=== PATIENT | female | born 1985 | race Caucasian/White ===

== ENCOUNTER 2016-08-14 14:19 | Emergency (ER) | payer SELFPAY ==
[2016-08-14 14:32] VITALS: BP 134/77
--- NOTE | 2016-08-14 15:02 | UC ---
Abdominal Pain Female HPI - HPI Summary HPI Summary: The patient comes in today for: 1. Abdominal pain: Onset: 8 hours ago. Palliative/provocative: Pressing on the abdomen "hurts a little bit." Quality: Throbbing, ache pain. Region/radiation: all of the abdomen--not in any one particular quadrant. Severity: 10/10 though she looks more like 4/10 Time: Constant. Associated symptoms: FEvers: None. Vomiting: None. Nausea: None. Diarrhea: Present, 4-5 times over the last 8 hours. However, she states that she has had diarrhea in the past. Her usual is 1-2 times a day. But, there are times she will have diarrhea (before she got ill this last 8 hours). She states that she will also have stooling up to 24 times a day if she eats "the wrong thing." She denies any blood, mucous or pus in her stools. Prevous disease: She states that she has had colitis before--type is unknown to the patient. * - History of Current Complaint Chief Complaint: UCGeneralIllness Stated Complaint: LOPEZ,STOMACH COMPLAINTS Time Seen by Provider: 08/14/16 14:47 Hx Obtained From: Patient Hx Last Menstrual Period: 08/14/16 ?: No Allergies/Adverse Reactions: Allergies Allergy/AdvReac Type Severity Reaction Status Date / Time Cephalexin [From Keflex] Allergy Hives Verified 08/14/16 14:23 insulation Allergy Hives Uncoded 08/14/16 14:23 spider bites Allergy Swelling Uncoded 08/14/16 14:23 PMH/Surg Hx/FS Hx/Imm Hx Previously Healthy: No Endocrine History Of: Denies: Diabetes, Thyroid Disease, Hyperthyroidism, Hypothyroidism, Dyslipidemia Cardiovascular History Of: Denies: Cardiac Disorders, Hypertension, Pacemaker/ICD, Myocardial Infarction , Congestive Heart Failure, Atrial Fibrillation, Deep Vein Thrombosis, Bleeding Disorders Respiratory History Of: Denies: COPD, Asthma, Bronchitis, Pneumonia, Pulmonary Embolism GI/ History Of: Reports: Gastroesophageal Reflux - Takes Prilosec, Gall Bladder Disease - She had a cholecystectomy "a couple years ago.", Kidney Stones - When she had her gallbladder check, the renal stones were present. Denies: Ulcer, Gastrointestinal Bleed, Diverticulitis, Renal Disease, Urosepsis Neurological History Of: Denies: TIA, CVA, Dementia, Seizures, Migraine Psychological History Of: Denies: Anxiety, Depression, Bipolar Disorder, Schizophrenia, Post Traumatic Stress Disorder Cancer History Of: Denies: Lung Cancer, Colorectal Cancer, Breast Cancer, Prostate Cancer, Cervical Cancer Other History Of: Negative For: HIV, Hepatitis B, Hepatitis C, Anticoagulant Therapy - Surgical History Surgical History: Yes Surgery Procedure, Year, and Place: cholecystectomy August 2012; tooth extraction July 2012 - Family History Known Family History: Positive: Hypertension, Diabetes Negative: Cardiac Disease - Social History Occupation: Unemployed Lives: With Family Alcohol Use: None Substance Use Type: None Smoking Status (MU): Light Every Day Tobacco Smoker Type: Cigarettes Amount Used/How Often: <1/2 PPD Length of Time of Smoking/Using Tobacco: 6+ YEARS Have You Smoked in the Last Year: Yes Household Exposure Type: Cigarettes - Immunization History Most Recent Tetanus Shot: UNSURE Review of Systems Constitutional: Negative Skin: Negative Eyes: Negative ENT: Ear Ache - She states that she has bilateral otalgia. Respiratory: Cough - "I have a little bit of a cough" but she has not coughed once during the exam. Cardiovascular: Negative Gastrointestinal: Abdominal Pain Genitourinary: Negative Neurological: Headache All Other Systems Reviewed And Are Negative: Yes Physical Exam Triage Information Reviewed: Yes Appearance: Well-Appearing, No Pain Distress, Well-Nourished, Other: - She states that she has a 10/10 pain, but she is lounging across the exam room chair in no distress. She has no psychomotor slowing or guarding or her movement. She is animated and talkative. There is no groaning, or holding of the abdomen. Vital Signs: Initial Vital Signs Temp 97.9 F 08/14/16 14:25 Pulse 99 08/14/16 14:25 Resp 18 08/14/16 14:25 BP 134/77 08/14/16 14:25 Pulse Ox 100 08/14/16 14:25 Vital Signs Reviewed: Yes Eyes: Positive: Conjunctiva Clear. Negative: Discharge ENT: Positive: Hearing grossly normal. Negative: Pharyngeal erythema, Nasal congestion, Nasal drainage, TM bulging, TM dull, TM red, Tonsillar swelling, Tonsillar exudate Dental: Negative: Gross Decay/Caries @, Dental Fracture @ Neck: Positive: Supple, Nontender, No Lymphadenopathy. Negative: Nuchal Rigidity Respiratory: Positive: Chest non-tender, Lungs clear, No respiratory distress, No accessory muscle use. Negative: Crackles, Wheezing Cardiovascular: Positive: RRR, No Murmur Abdomen Description: Positive: No Organomegaly, Soft. Negative: Nontender - She has minimal tenderness to deep palpation in the epigastric area. No masses. No rebound, no percussion tenderness., Distended, Guarding, McBurney's Point Tenderness, Peritoneal Signs Bowel Sounds: Positive: Present Musculoskeletal: Positive: Strength Intact, ROM Intact, No Edema Neurological: Positive: Alert, Muscle Tone Normal Psychological: Positive: Age Appropriate Behavior, Consolable Skin: Negative: rashes, breakdown Diagnostics - Laboratory Diagnostic Studies Completed/Ordered: Urine screen: Specific gravity: 1.035. WBC: (-). Nitrite; (-). Blood: +++. Protein: 100 +. Glucose: None. Bilirubin: 2+. She is on her period. Abd Pain Female Course/Dx - Course Course Of Treatment: Patient was told that I suspected that she has a viral gastroenteritis, despite her complaints of pain being a "10/10." She was offered anti-spasmotic medication which she wanted. She was honestly told that from what she told me and her exam, I would not go to the ER, but she wanted more testing done than what we can offer her. - Differential Dx/Diagnosis Differential Diagnosis: Other - gastroenteritis Provider Diagnoses: Abdominal pain (suspect gastroenteritis) - Physician Notification/Consults Discussed Patient Care With: Dr. Benedict Time Discussed With Above Provider: 15:26 Discharge - Discharge Plan Condition: Stable Disposition: HOME Referrals: Akbar Diaz [Primary Care Provider] - As Soon As Possible (Please see your primary care provider as soon as you get out of the hospital.) Additional Instructions: The patient will be going to the ER at [facility] [place].
== END 2016-08-14 15:37 | disposition left against medical advice (07) ==
LOC: UCEAST 14:19
DX: R10.13 Epigastric pain (principal); Z88.1 Allergy status to other antibiotic agents; Z90.49 Acquired absence of other specified parts of digestive tract; F17.210 Nicotine dependence, cigarettes, uncomplicated
CPT/HCPCS: 81002; 99212; G0463

== ENCOUNTER 2016-08-14 16:24 | Emergency (ER) | payer SELFPAY ==
[2016-08-14 16:32] VITALS: BP 134/80
[2016-08-14] MEDS ORDERED: Ketorolac INJ* 30 MG/ML 1 ML VIAL IV PUSH ONE (17:09)
[2016-08-14] MEDS ORDERED: NS 0.9% 1000 ML* 1,000 ML IV ONE (17:09)
[2016-08-14 17:17] LABS: Hematocrit 43 % (35-47); Hemoglobin 14.2 g/dl (12.0-16.0); Mean Corpuscular HGB Conc 33 g/dl (31-36); Mean Corpuscular Hemoglobin 28 pg (27-31); Mean Corpuscular Volume 85 fL (80-97); Mean Platelet Volume 8 um3 (7.4-10.4); Red Blood Count 5.01 10^6/ul (4.0-5.4); Red Cell Distribution Width 13 % (10.5-15); White Blood Count 9.4 10^3/ul (3.5-10.8)
[2016-08-14 17:33] LABS: ALT 23 U/L (7-52); AST 21 U/L (13-39); Albumin 4.4 g/dL (3.2-5.2); Alkaline Phosphatase 53 U/L (34-104); Anion Gap 7 mmol/L (2-11); BUN/Creatinine Ratio 10.6 (8-20); Blood Urea Nitrogen 7 mg/dL (6-24); CO2 Carbon Dioxide 24 mmol/L (22-32); Calcium 9.2 mg/dL (8.6-10.3); Chloride 104 mmol/L (101-111); EGFR African American 133.5 (>60); EGFR Non-African American 103.8 (>60); Globulin 3.3 g/dL (2-4); Glucose 94 mg/dL (70-100); Lipase 36 U/L (11.0-82.0); Potassium 3.5 mmol/L (3.5-5.0); Sodium 135 mmol/L (133-145); Total Protein 7.7 g/dL (6.4-8.9)
[2016-08-14 18:51] LABS: Urine Bacteria Absent (Absent); Urine Bilirubin Negative (Negative); Urine Glucose Negative (Negative); Urine Nitrite Negative (Negative)
--- NOTE | 2016-08-14 18:52 | ED ---
GI/ HPI - HPI Summary HPI Summary: 31F presents with generalized abdominal pain, diarrhea, and a headache since today. She says that since her gallbladder was removed she has had looser stools but today diarrhea developed 5 hours ago. She denies any blood in her stool. She says that the pain is 7/10 all over the abdomen. She admits to decrease in appetite but denies any cough, n/v, or fever. She has a band like headache present. This is normal of her typical tension headaches. She is currently on her menses. She denies any dysuria. Was seen at and diagnosed with viral gastroenteritis but wanted further work up. - History of Current Complaint Pain Intensity: 9 <Katerina Moore - Last Filed: 08/14/16 21:58> <Collins Benedict - Last Filed: 08/28/16 22:17> - History of Current Complaint Chief Complaint: EDAbdPain Time Seen by Provider: 08/14/16 16:58 Stated Complaint: ABD PAIN/HEADACHE - Allergy/Home Medications Allergies/Adverse Reactions: Allergies Allergy/AdvReac Type Severity Reaction Status Date / Time Cephalexin [From Keflex] Allergy Hives Verified 08/14/16 14:23 insulation Allergy Hives Uncoded 08/14/16 14:23 spider bites Allergy Swelling Uncoded 08/14/16 14:23 PMH/Surg Hx/FS Hx/Imm Hx Endocrine/Hematology History: Denies: Hx Anticoagulant Therapy, Hx Diabetes, Hx Thyroid Disease Cardiovascular History: Denies: Hx Congestive Heart Failure, Hx Deep Vein Thrombosis, Hx Hypertension , Hx Myocardial Infarction, Hx Pacemaker/ICD Respiratory History: Denies: Hx Asthma, Hx Chronic Obstructive Pulmonary Disease (COPD), Hx Lung Cancer, Hx Pneumonia, Hx Pulmonary Embolism GI History: Reports: Hx Gall Bladder Disease - She had a cholecystectomy "a couple years ago.", Other GI Disorders - GERD Denies: Hx Gastrointestinal Bleed, Hx Ulcer, Hx Urosepsis History: Reports: Hx Kidney Stones - When she had her gallbladder check, the renal stones were present. Denies: Hx Renal Disease, Other Problems/Disorders Neurological History: Denies: Hx Dementia, Hx Migraine, Hx Seizures, Hx Transient Ischemic Attacks (TIA) Psychiatric History: Denies: Hx Anxiety, Hx Depression, Hx Schizophrenia, Hx Bipolar Disorder - Surgical History Surgery Procedure, Year, and Place: cholecystectomy August 2012; tooth extraction July 2012 Infectious Disease History: No Infectious Disease History: Denies: Hx Clostridium Difficile, Hx Hepatitis, Hx Human Immunodeficiency Virus (HIV), Hx of Known/Suspected MRSA, Hx Shingles, Hx Tuberculosis, Hx Known/ Suspected VRE, Hx Known/Suspected VRSA, History Other Infectious Disease, Traveled Outside the [place] in Last 30 Days - Family History Known Family History: Positive: Hypertension, Diabetes Negative: Cardiac Disease - Social History Alcohol Use: None Substance Use Type: Reports: None Smoking Status (MU): Light Every Day Tobacco Smoker Type: Cigarettes Amount Used/How Often: <1/2 PPD Length of Time of Smoking/Using Tobacco: 6+ YEARS Have You Smoked in the Last Year: Yes <Katerina Moore - Last Filed: 08/14/16 21:58> Review of Systems Negative: Fever Negative: Chest Pain Negative: Shortness Of Breath Positive: Abdominal Pain, Diarrhea, Nausea. Negative: Vomiting Negative: dysuria All Other Systems Reviewed And Are Negative: Yes <Katerina Moore - Last Filed: 08/14/16 21:58> Physical Exam Triage Information Reviewed: Yes Vital Signs On Initial Exam: Initial Vitals Temp Pulse Resp BP Pulse Ox 98.9 F 100 16 134/80 100 08/14/16 16:27 08/14/16 16:27 08/14/16 16:27 08/14/16 16:27 08/14/16 16:27 Vital Signs Reviewed: Yes Appearance: Positive: Well-Appearing Skin: Positive: Warm, Dry Head/Face: Positive: Normal Head/Face Inspection Eyes: Positive: Normal, Conjunctiva Clear ENT: Positive: Normal ENT inspection, Pharynx normal, TMs normal Respiratory/Lung Sounds: Positive: Clear to Auscultation, Breath Sounds Present Cardiovascular: Positive: Normal, RRR Abdomen Description: Positive: Soft, Other: - generalized abdominal tenderness, no rebound tenderness Bowel Sounds: Positive: Present - [place] Coma Scale Coma Scale Total: 15 <Katerina Moore - Last Filed: 08/14/16 21:58> Vital Signs On Initial Exam: Initial Vitals Temp Pulse Resp BP Pulse Ox 98.9 F 100 16 134/80 100 08/14/16 16:27 08/14/16 16:27 08/14/16 16:27 08/14/16 16:27 08/14/16 16:27 <Collins Benedict - Last Filed: 08/28/16 22:17> Diagnostics - Vital Signs Vital Signs Temp Pulse Resp BP Pulse Ox 08/14/16 16:27 98.9 F 100 16 134/80 100 - Laboratory Lab Results: Lab Results 08/14/16 08/14/16 08/14/16 Range/Units 17:05 17:05 18:25 WBC 9.4 (3.5-10.8) 10^3/ul RBC 5.01 (4.0-5.4) 10^6/ul Hgb 14.2 (12.0-16.0) g/dl Hct 43 (35-47) % MCV 85 (80-97) fL MCH 28 (27-31) pg MCHC 33 (31-36) g/dl RDW 13 (10.5-15) % Plt Count 298 (150-450) 10^3/ul MPV 8 (7.4-10.4) um3 Neut % (Auto) 62.5 (38-83) % Lymph % (Auto) 25.6 (25-47) % Benzie % (Auto) 7.3 (1-9) % Eos % (Auto) 3.8 (0-6) % Baso % (Auto) 0.8 (0-2) % Absolute Neuts (auto) 5.9 (1.5-7.7) 10^3/ul Absolute Lymphs (auto) 2.4 (1.0-4.8) 10^3/ul Absolute Monos (auto) 0.7 (0-0.8) 10^3/ul Absolute Eos (auto) 0.4 (0-0.6) 10^3/ul Absolute Basos (auto) 0.1 (0-0.2) 10^3/ul Absolute Nucleated RBC 0 10^3/ul Nucleated RBC % 0 Sodium 135 (133-145) mmol/L Potassium 3.5 (3.5-5.0) mmol/L Chloride 104 (101-111) mmol/L Carbon Dioxide 24 (22-32) mmol/L Anion Gap 7 (2-11) mmol/L BUN 7 (6-24) mg/dL Creatinine 0.66 (0.51-0.95) mg/dL Est GFR ( Amer) 133.5 (>60) Est GFR (Non-Af Amer) 103.8 (>60) BUN/Creatinine Ratio 10.6 (8-20) Glucose 94 (70-100) mg/dL Calcium 9.2 (8.6-10.3) mg/dL Total Bilirubin 0.60 (0.2-1.0) mg/dL AST 21 (13-39) U/L ALT 23 (7-52) U/L Alkaline Phosphatase 53 (34-104) U/L C-React Prot High Sens 2.07 mg/L Total Protein 7.7 (6.4-8.9) g/dL Albumin 4.4 (3.2-5.2) g/dL Globulin 3.3 (2-4) g/dL Albumin/Globulin Ratio 1.3 (1-3) Lipase 36 (11.0-82.0) U/L Beta HCG, Quant < 0.60 mIU/mL Urine Color Yellow Urine Appearance Clear Urine pH 6.0 (5-9) Ur Specific [place] 1.015 (1.010-1.030) Urine Protein Negative (Negative) Urine Ketones 1+ H (Negative) Urine Blood 3+ H (Negative) Urine Nitrate Negative (Negative) Urine Bilirubin Negative (Negative) Urine Urobilinogen Negative (Negative) Ur Leukocyte Esterase Negative (Negative) Urine WBC (Auto) Absent (Absent) Urine RBC (Auto) 1+(3-5/hpf) H (Absent) Ur Squamous Epith Cells Present H (Absent) Urine Bacteria Absent (Absent) Urine Glucose Negative (Negative) Result Diagrams: 08/14/16 17:05 08/14/16 17:05 Lab Statement: Any lab studies that have been ordered have been reviewed, and results considered in the medical decision making process. <Katerina Moore - Last Filed: 08/14/16 21:58> - Vital Signs Vital Signs Temp Pulse Resp BP Pulse Ox 08/14/16 19:18 20 08/14/16 16:27 98.9 F 100 16 134/80 100 - Laboratory Lab Results: Lab Results 08/14/16 08/14/16 08/14/16 Range/Units 17:05 17:05 18:25 WBC 9.4 (3.5-10.8) 10^3/ul RBC 5.01 (4.0-5.4) 10^6/ul Hgb 14.2 (12.0-16.0) g/dl Hct 43 (35-47) % MCV 85 (80-97) fL MCH 28 (27-31) pg MCHC 33 (31-36) g/dl RDW 13 (10.5-15) % Plt Count 298 (150-450) 10^3/ul MPV 8 (7.4-10.4) um3 Neut % (Auto) 62.5 (38-83) % Lymph % (Auto) 25.6 (25-47) % Benzie % (Auto) 7.3 (1-9) % Eos % (Auto) 3.8 (0-6) % Baso % (Auto) 0.8 (0-2) % Absolute Neuts (auto) 5.9 (1.5-7.7) 10^3/ul Absolute Lymphs (auto) 2.4 (1.0-4.8) 10^3/ul Absolute Monos (auto) 0.7 (0-0.8) 10^3/ul Absolute Eos (auto) 0.4 (0-0.6) 10^3/ul Absolute Basos (auto) 0.1 (0-0.2) 10^3/ul Absolute Nucleated RBC 0 10^3/ul Nucleated RBC % 0 Sodium 135 (133-145) mmol/L Potassium 3.5 (3.5-5.0) mmol/L Chloride 104 (101-111) mmol/L Carbon Dioxide 24 (22-32) mmol/L Anion Gap 7 (2-11) mmol/L BUN 7 (6-24) mg/dL Creatinine 0.66 (0.51-0.95) mg/dL Est GFR ( Amer) 133.5 (>60) Est GFR (Non-Af Amer) 103.8 (>60) BUN/Creatinine Ratio 10.6 (8-20) Glucose 94 (70-100) mg/dL Calcium 9.2 (8.6-10.3) mg/dL Total Bilirubin 0.60 (0.2-1.0) mg/dL AST 21 (13-39) U/L ALT 23 (7-52) U/L Alkaline Phosphatase 53 (34-104) U/L C-React Prot High Sens 2.07 mg/L Total Protein 7.7 (6.4-8.9) g/dL Albumin 4.4 (3.2-5.2) g/dL Globulin 3.3 (2-4) g/dL Albumin/Globulin Ratio 1.3 (1-3) Lipase 36 (11.0-82.0) U/L Beta HCG, Quant < 0.60 mIU/mL Urine Color Yellow Urine Appearance Clear Urine pH 6.0 (5-9) Ur Specific [place] 1.015 (1.010-1.030) Urine Protein Negative (Negative) Urine Ketones 1+ H (Negative) Urine Blood 3+ H (Negative) Urine Nitrate Negative (Negative) Urine Bilirubin Negative (Negative) Urine Urobilinogen Negative (Negative) Ur Leukocyte Esterase Negative (Negative) Urine WBC (Auto) Absent (Absent) Urine RBC (Auto) 1+(3-5/hpf) H (Absent) Ur Squamous Epith Cells Present H (Absent) Urine Bacteria Absent (Absent) Urine Glucose Negative (Negative) Result Diagrams: 08/14/16 17:05 08/14/16 17:05 Lab Statement: Any lab studies that have been ordered have been reviewed, and results considered in the medical decision making process. <Collins Benedict - Last Filed: 08/28/16 22:17> GIGU Course/Dx - Course Course Of Treatment: 31 F presents with generalized abdominal pain, tension like headache, and diarrhea that started today. no blood in stool or mucous. abdomen diffusely tender but no rebound tenderness. labs normal WBC. gave toradol for pain and says pain still present gave morphine and pain reduced. gave loperamide for diarrhea and explained that likely viral, told to return if pain locailizes in one area, patient agrees with plan - Diagnoses Differential Diagnoses - Female: Appendicitis, Gastroenteritis (Viral), Gastroenteritis (Bacterial), Urinary Tract Infection <Katerina Moore - Last Filed: 08/14/16 21:58> - Course Assessment/Plan: Patient not presented, seen or examen by [facility] WR <Collins Benedict - Last Filed: 08/28/16 22:17> - Diagnoses Provider Diagnoses: Abdominal pain, Diarrhea Discharge <Katerina Moore - Last Filed: 08/14/16 21:58> <Collins Benedict - Last Filed: 08/28/16 22:17> - Discharge Plan Condition: Good Disposition: HOME Prescriptions: Loperamide CAP* [Imodium CAP*] 2 mg PO SEE INSTRUCTIONS #12 cap MDD 16 mg Patient Education Materials: Acute Diarrhea (ED) Referrals: Andrew VICTORIA,Akbar Sagastume [Primary Care Provider] - Additional Instructions: Loperamide Initial: 4 mg (2 tablets), followed by 2 mg (1 tablet) after each loose stool (maximum: 16 mg/day) Drink small amounts of fluid as tolerated When able to eat follow BRAT diet: Bananas, rice, applesauce, toast Symptoms likely due to viral gastroenteritis Take Tylenol for pain as needed every 6 hours Follow up with primary within 5 days Return to ED if develop abdominal pain that localizes to one area of the abdomen , or any new or worsening symptoms
[2016-08-14] MEDS ORDERED: Morphine INJ* 4 MG/ML 1 ML CARPUJECT IV ONE (18:58)
[2016-08-14] MEDS ORDERED: Ondansetron INJ* 2 MG/ML VIAL IV ONE (18:58)
== END 2016-08-14 19:27 | disposition home or self-care (01) ==
LOC: ED 16:24
DX: R10.9 Unspecified abdominal pain (principal); R19.7 Diarrhea, unspecified; R51 Headache; F17.210 Nicotine dependence, cigarettes, uncomplicated
CPT/HCPCS: 36415; 80053; 81003; 81015; 83690; 84702; 85025; 86141; 96374; 96375; 99283; J1885; J2270; J2405

== ENCOUNTER 2016-09-05 09:00 | Emergency (ER) | payer SELFPAY ==
[2016-09-05 09:27] VITALS: BP 132/89
--- NOTE | 2016-09-05 10:13 | UC ---
Throat Pain/Nasal Juan HPI - HPI Summary HPI Summary: complaint of bilateral ear pain that started 3 days ago throbbing pain intermittent headaches nasal congestion for approx 1 year denies fever and chills can't always hear well from either ear taking excedrin and tylenol for pain with minimal relief hx of ear infections 1-2x year - History of Current Complaint Chief Complaint: UCEar Stated Complaint: EAR AND SINUS COMPLAINT Time Seen by Provider: 09/05/16 10:07 Hx Obtained From: Patient Hx Last Menstrual Period: 08/2716 - Allergies/Home Medications Allergies/Adverse Reactions: Allergies Allergy/AdvReac Type Severity Reaction Status Date / Time Cephalexin [From Keflex] Allergy Hives Verified 08/14/16 14:23 insulation Allergy Hives Uncoded 08/14/16 14:23 spider bites Allergy Swelling Uncoded 08/14/16 14:23 PMH/Surg Hx/FS Hx/Imm Hx Previously Healthy: Yes Endocrine History Of: Denies: Diabetes, Thyroid Disease, Hyperthyroidism, Hypothyroidism, Dyslipidemia Cardiovascular History Of: Denies: Cardiac Disorders, Hypertension, Pacemaker/ICD, Myocardial Infarction , Congestive Heart Failure, Atrial Fibrillation, Deep Vein Thrombosis, Bleeding Disorders Respiratory History Of: Denies: COPD, Asthma, Bronchitis, Pneumonia, Pulmonary Embolism GI/ History Of: Reports: Gastroesophageal Reflux - Takes Prilosec, Gall Bladder Disease - She had a cholecystectomy "a couple years ago.", Kidney Stones - When she had her gallbladder check, the renal stones were present. Denies: Ulcer, Gastrointestinal Bleed, Diverticulitis, Renal Disease, Urosepsis Neurological History Of: Denies: TIA, CVA, Dementia, Seizures, Migraine Psychological History Of: Denies: Anxiety, Depression, Bipolar Disorder, Schizophrenia, Post Traumatic Stress Disorder Cancer History Of: Denies: Lung Cancer, Colorectal Cancer, Breast Cancer, Prostate Cancer, Cervical Cancer Other History Of: Negative For: HIV, Hepatitis B, Hepatitis C, Anticoagulant Therapy - Surgical History Surgical History: Yes Surgery Procedure, Year, and Place: cholecystectomy August 2012; tooth extraction July 2012 - Family History Known Family History: Positive: Hypertension, Diabetes Negative: Cardiac Disease - Social History Occupation: Unemployed Lives: With Family Alcohol Use: None Substance Use Type: None Smoking Status (MU): Light Every Day Tobacco Smoker Type: Cigarettes Amount Used/How Often: <1/2 PPD Length of Time of Smoking/Using Tobacco: 6+ YEARS Have You Smoked in the Last Year: Yes Household Exposure Type: Cigarettes Cessation Counseling: Patient Advised to Stop - Immunization History Most Recent Tetanus Shot: UNSURE Review of Systems Constitutional: Negative Skin: Negative Eyes: Negative ENT: Ear Ache, Nasal Discharge Respiratory: Cough Cardiovascular: Negative Gastrointestinal: Negative Genitourinary: Negative Motor: Negative Neurovascular: Negative Musculoskeletal: Negative Neurological: Negative Psychological: Negative All Other Systems Reviewed And Are Negative: Yes Physical Exam Triage Information Reviewed: Yes Appearance: No Pain Distress, Well-Nourished Vital Signs: Initial Vital Signs Temp 98.7 F 09/05/16 09:20 Pulse 104 09/05/16 09:20 BP 132/89 09/05/16 09:20 Pulse Ox 100 09/05/16 09:20 Vital Signs Reviewed: Yes Eyes: Positive: Conjunctiva Clear ENT: Positive: Pharynx normal, Nasal congestion, Nasal drainage, TM bulging. Negative: TM red, Tonsillar swelling Neck: Positive: No Lymphadenopathy Respiratory: Positive: Lungs clear, Normal breath sounds, No respiratory distress Cardiovascular: Positive: RRR, No Murmur, Pulses Normal Abdomen Description: Positive: Nontender, Soft Bowel Sounds: Positive: Present Musculoskeletal Exam: Normal Neurological: Positive: Alert Psychological Exam: Normal Skin Exam: Normal Throat Pain/Nasal Course/Dx - Differential Dx/Diagnosis Differential Diagnosis/HQI/PQRI: URI, Other - eustachion tube dysfunction, seasonal allergies Provider Diagnoses: eustachion tube dysfunction. otaligia Discharge - Discharge Plan Condition: Stable Disposition: HOME Prescriptions: Mometasone NASAL (NF) [Nasonex (NF)] 50 mcg NA DAILY #1 bottle Naproxen TAB* [Naprosyn TAB*] 500 mg PO Q12H PRN #20 tab PRN Reason: Pain - Moderate Patient Education Materials: Eustachian Tube Dysfunction (GEN), How to Stop Smoking (ED) Referrals: Andrew VICTORIA,Akbar Sagastume [Primary Care Provider] - Additional Instructions: Start nasal spray as directed Increase fluids and rest Take naproxen for pain Stop smoking - review instructions and see your primary care provider for assistance Please review your discharge instructions. If your symptoms do not improve please call your primary care provider or return to urgent care
== END 2016-09-05 10:53 | disposition home or self-care (01) ==
LOC: UCEAST 09:00
DX: H69.93 Unspecified Eustachian tube disorder, bilateral (principal); H92.03 Otalgia, bilateral; Z90.49 Acquired absence of other specified parts of digestive tract; Z88.1 Allergy status to other antibiotic agents; F17.210 Nicotine dependence, cigarettes, uncomplicated
CPT/HCPCS: 99212; G0463

== ENCOUNTER 2017-08-16 07:35 | Emergency (ER) | payer SELFPAY ==
[2017-08-16 08:26] VITALS: BP 131/78
--- NOTE | 2017-08-16 08:49 | UC ---
FLU HPI - HPI Summary HPI Summary: cough and congestion for two days with myalgias and chills. was diagnosed with influenza yesterday. She denies or any chronic lung disease. Non infants at home. - History of Current Complaint Chief Complaint: UCRespiratory Stated Complaint: COUGH HEADACHE VOMITING Time Seen by Provider: 08/16/17 08:40 Hx Obtained From: Patient Hx Last Menstrual Period: 08/02/17 Onset/Duration: Gradual Onset, Lasting Days Severity Currently: Moderate Severity Initially: Moderate Pain Intensity: 7 Associated Signs & Symptoms: Positive: Fever, Myalgia, Cough, Sore Throat, Nasal Congestion. Negative: Vomiting, Diarrhea Related Hx: Possible Flu/Infectious Exposure - Allergy/Home Medications Allergies/Adverse Reactions: Allergies Allergy/AdvReac Type Severity Reaction Status Date / Time cephalexin Allergy Hives Verified 08/16/17 08:27 insulation Allergy Hives Uncoded 08/16/17 08:27 spider bites Allergy Swelling Uncoded 08/16/17 08:27 Home Medications: Home Medications Acetaminophen [Pain Relief] 1,000 mg PO Q6HR PRN 08/16/17 [History Confirmed ] PMH/Surg Hx/FS Hx/Imm Hx Previously Healthy: Yes Other History Of: Negative For: HIV, Hepatitis B, Hepatitis C, Anticoagulant Therapy - Surgical History Surgical History: Yes Surgery Procedure, Year, and Place: cholecystectomy August 2012; tooth extraction July 2012 - Family History Known Family History: Positive: Hypertension, Diabetes Negative: Cardiac Disease - Social History Lives: With Family Alcohol Use: None Substance Use Type: None Smoking Status (MU): Light Every Day Tobacco Smoker Type: Cigarettes Amount Used/How Often: <1/2 PPD Length of Time of Smoking/Using Tobacco: 6+ YEARS Have You Smoked in the Last Year: Yes Household Exposure Type: Cigarettes - Immunization History Most Recent Tetanus Shot: UNSURE Review of Systems Constitutional: Fever ENT: Sore Throat, Sinus Congestion Respiratory: Cough All Other Systems Reviewed And Are Negative: Yes Physical Exam Triage Information Reviewed: Yes Appearance: Well-Appearing, No Pain Distress, Well-Nourished Vital Signs: Initial Vital Signs Temp 100.2 F 08/16/17 08:21 Pulse 99 08/16/17 08:21 Resp 20 08/16/17 08:21 BP 131/78 08/16/17 08:21 Pulse Ox 98 08/16/17 08:21 Vital Signs Reviewed: Yes Eyes: Positive: Conjunctiva Clear ENT: Positive: Pharynx normal, Nasal congestion, TMs normal, Uvula midline. Negative: TM bulging, TM dull, TM red, Tonsillar swelling, Tonsillar exudate, Trismus, Muffled voice, Hoarse voice, Dental tenderness, Sinus tenderness Neck: Positive: Supple, Nontender, No Lymphadenopathy Respiratory: Positive: Lungs clear, Normal breath sounds, No respiratory distress, No accessory muscle use. Negative: Respiratory distress, Decreased breath sounds, Accessory muscle use, Crackles, Rhonchi, Stridor Cardiovascular: Positive: No Murmur, Pulses Normal Abdomen Description: Positive: No Organomegaly, Soft. Negative: Distended, Guarding Bowel Sounds: Negative: Present Musculoskeletal: Positive: ROM Intact, No Edema Neurological: Positive: Alert, Muscle Tone Normal. Negative: Fatigued Psychological: Positive: Age Appropriate Behavior Skin: Negative: rashes Flu Course/Dx - Differential Dx/Diagnosis Provider Diagnoses: influenza. Discharge - Discharge Plan Condition: Good Disposition: HOME Prescriptions: Benzonatate CAP* [Tessalon 100 MG CAP*] 100 mg PO TID PRN #21 cap PRN Reason: Cough Oseltamivir CAP* [Tamiflu CAP*] 75 mg PO BID #10 cap Patient Education Materials: Influenza (ED) Referrals: Edi Valenzuela MD [Primary Care Provider] -
== END 2017-08-16 09:02 | disposition home or self-care (01) ==
LOC: UCCORT 07:35
DX: J11.1 Influenza due to unidentified influenza virus with other respiratory manifestations (principal); Z20.828 Contact with and (suspected) exposure to other viral communicable diseases; F17.210 Nicotine dependence, cigarettes, uncomplicated
CPT/HCPCS: 99212; G0463

== ENCOUNTER 2018-05-03 08:49 | Emergency (ER) | payer OTHER ==
[2018-05-03 09:16] VITALS: BP 128/77
--- NOTE | 2018-05-03 10:52 | RAD ---
HISTORY: back pain COMPARISONS: June 09, 2016 VIEWS: 5 , Frontal, lateral, coned-down lateral sacral, and bilateral oblique views of the lumbar spine. FINDINGS: There is a transitional last lumbar type vertebral body which will be labeled S1 for the purposes of counting. ALIGNMENT: The alignment is normal. VERTEBRAL BODIES: The vertebral body heights are normal. The interpedicular distances are normal. There is partial lumbarization of the S1 vertebral body. There are small accessory ribs at L1. L1 JOINTS: The facet joints are normal. INTERVERTEBRAL DISCS: The intervertebral disc heights are normal. SOFT TISSUE: Unremarkable. OTHER: The pelvis is unremarkable. The lung bases are clear. IMPRESSION: UNREMARKABLE RADIOGRAPHS OF THE LUMBAR SPINE
--- NOTE | 2018-05-03 10:58 | UC ---
Back Pain HPI - HPI Summary HPI Summary: Pt presnets with c/o sudden onset of low back pain that began ~ 8 days ago. Pt was seen on [facility] ED for same c/o given toradol, injection, flexeril and told to take ibuprofen and acetominophen. Pt states that pain has not improved and now radiates across low back around to lower abdomen and pelvis. Pt reports 1 episode of nausea and diarrhea yesterday. Pt is sitting comfortably n exam table and moves without grimacing or with restriction in ROM. Denies, vaginal discharge, odor, or risk for STD. - History of Current Complaint Chief Complaint: UCBackPain Stated Complaint: BACK PAIN, ABDOMINAL CRAMPS Time Seen by Provider: 05/03/18 10:23 Hx Obtained From: Patient Hx Last Menstrual Period: 04/27/18 ?: No Onset/Duration: Sudden Onset, Lasting Days, Still Present, Worse Since - onset Timing: Constant Severity Initially: Moderate Severity Currently: Severe Pain Intensity: 10 Back Pain: Is Discrete @, Radiates To - around low back anteriorly to abdomen and pelvis. Character: Dull, Aching Aggravating Factor(s): Movement Alleviating Factor(s): Nothing Associated Signs And Symptoms: Positive: Negative - Risk Factors AAA Risk Factors: Negative TAD Risk Factors: Negative Cauda Equina Risk Factors: Negative Epidural Abscess Risk Factors: Negative - Allergies/Home Medications Allergies/Adverse Reactions: Allergies Allergy/AdvReac Type Severity Reaction Status Date / Time cephalexin Allergy Hives Verified 08/16/17 08:27 insulation Allergy Hives Uncoded 08/16/17 08:27 spider bites Allergy Swelling Uncoded 08/16/17 08:27 Home Medications: Home Medications Aspirin/Acetaminophen/Caffeine [Excedrin Extra Strength Caplet] 1 each PO DAILY 05/03/18 [History Confirmed 05/03/18] PMH/Surg Hx/FS Hx/Imm Hx Previously Healthy: Yes Other History Of: Negative For: HIV, Hepatitis B, Hepatitis C, Anticoagulant Therapy - Surgical History Surgical History: Yes Surgery Procedure, Year, and Place: cholecystectomy August 2012; tooth extraction July 2012 - Family History Known Family History: Positive: Hypertension, Diabetes Negative: Cardiac Disease - Social History Occupation: Works From/At Home Lives: With Family Alcohol Use: None Substance Use Type: None Smoking Status (MU): Heavy Every Day Tobacco Smoker Type: Cigarettes Amount Used/How Often: 1 PPD Length of Time of Smoking/Using Tobacco: 6+ YEARS Have You Smoked in the Last Year: Yes Household Exposure Type: Cigarettes - Immunization History Most Recent Tetanus Shot: UNSURE Review of Systems Constitutional: Negative Skin: Negative Eyes: Negative ENT: Negative Respiratory: Negative Cardiovascular: Negative Gastrointestinal: Abdominal Pain, Diarrhea, Nausea Genitourinary: Negative Motor: Negative Neurovascular: Negative Musculoskeletal: Arthralgia, Myalgia Neurological: Negative Psychological: Negative Is Patient Immunocompromised?: No All Other Systems Reviewed And Are Negative: Yes Physical Exam Triage Information Reviewed: Yes Appearance: Well-Appearing, No Pain Distress Vital Signs: Initial Vital Signs Temp 97.8 F 05/03/18 09:07 Pulse 115 05/03/18 09:07 Resp 16 05/03/18 09:07 BP 128/77 05/03/18 09:07 Pulse Ox 100 05/03/18 09:07 Vital Signs Reviewed: Yes Eye Exam: Normal ENT Exam: Normal Dental Exam: Normal Neck exam: Normal Respiratory Exam: Normal Cardiovascular Exam: Normal Abdominal Exam: Normal Abdomen Description: Positive: Nontender Bowel Sounds: Positive: Present Musculoskeletal Exam: Normal Neurological Exam: Normal Neurological: Positive: Fatigued Skin Exam: Normal Diagnostics - Radiology No standard instances Radiology Interpretation Completed By: Radiologist - IMPRESSION: UNREMARKABLE RADIOGRAPHS OF THE LUMBAR SPINE Back Pain Course/Dx - Differential Dx/Diagnosis Differential Diagnosis/HQI/PQRI: Herniated Disc, Strain, Sprain Provider Diagnoses: low back pain Discharge - Sign-Out/Discharge Documenting (check all that apply): Patient Departure All imaging exams completed and their final reports reviewed: Yes - Discharge Plan Condition: Stable Disposition: HOME Prescriptions: Cyclobenzaprine TAB* [Flexeril 10 MG TAB*] 10 mg PO Q8H PRN #21 tab PRN Reason: Pain Ibuprofen TAB* [Motrin TAB* 800 MG] 800 mg PO Q8H PRN #30 tab PRN Reason: Pain Patient Education Materials: Acute Low Back Pain (ED), Lower Back Exercises (ED ) Referrals: [facility] [Outside] - If Needed Edi Valenzuela MD [Primary Care Provider] - - Billing Disposition and Condition Condition: STABLE Disposition: Home
== END 2018-05-03 11:10 | disposition home or self-care (01) ==
LOC: UCCORT 08:49
DX: M54.5 Low back pain (principal)
CPT/HCPCS: 72110; 81003; 84702; 99212; G0463

== ENCOUNTER 2018-11-02 17:41 | Emergency (ER) | payer SELFPAY ==
[2018-11-02 18:01] VITALS: BP 106/65
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
[2018-11-02] MEDS ORDERED: Naproxen TAB* 250 MG PO ONE (19:22)
--- NOTE | 2018-11-03 07:57 | UC ---
- Progress Note Progress Note: Final x-ray reading reviewed. SOFT TISSUE SWELLING, NO FRACTURE IS SEEN. Consistent with provider reading. No change in POC. Course/Dx - Diagnoses Provider Diagnoses: Right ankle sprain Discharge - Sign-Out/Discharge Documenting (check all that apply): Post-Discharge Follow Up All imaging exams completed and their final reports reviewed: No - Discharge Plan Condition: Stable Disposition: HOME Patient Education Materials: Ankle Sprain (ED) Referrals: Edi Valenzuela MD [Primary Care Provider] - Additional Instructions: You should follow up with your orthopedist next week. You will get a call from us if there is anything on the xray that is inconsistent with my interpretation as a non-radiologist. -ice with a towel barrier, naproxen, rest. -you should do the ABC tracing exercise with your ankle many times per day. - Billing Disposition and Condition Condition: STABLE Disposition: Home
--- NOTE | 2018-11-03 07:59 | UC ---
- Progress Note Progress Note: See previous note. Course/Dx - Diagnoses Provider Diagnoses: Right ankle sprain Discharge - Sign-Out/Discharge Documenting (check all that apply): Post-Discharge Follow Up All imaging exams completed and their final reports reviewed: Yes - Discharge Plan Condition: Stable Disposition: HOME Patient Education Materials: Ankle Sprain (ED) Referrals: Edi Valenzuela MD [Primary Care Provider] - Additional Instructions: You should follow up with your orthopedist next week. You will get a call from us if there is anything on the xray that is inconsistent with my interpretation as a non-radiologist. -ice with a towel barrier, naproxen, rest. -you should do the ABC tracing exercise with your ankle many times per day. - Billing Disposition and Condition Condition: STABLE Disposition: Home
== END 2018-11-02 19:30 | disposition home or self-care (01) ==
LOC: UCCORT 17:41
DX: S93.401A Sprain of unspecified ligament of right ankle, initial encounter (principal); W10.8XXA Fall (on) (from) other stairs and steps, initial encounter; Y93.01 Activity, walking, marching and hiking; Y92.019 Unspecified place in single-family (private) house as the place of occurrence of the external cause; F17.210 Nicotine dependence, cigarettes, uncomplicated; Z88.1 Allergy status to other antibiotic agents; Z91.038 Other insect allergy status; Z91.048 Other nonmedicinal substance allergy status
CPT/HCPCS: 99213; A9270-GY; G0463